=== PATIENT | male | born 1980 | race Two or more races ===

== ENCOUNTER 2023-02-18 15:37 | Emergency (ER) | payer SELFPAY ==
[~2023-02-18] VITALS: Ht 180.3 cm; Wt 91.0 kg
[2023-02-18 15:50] VITALS: TEMP 98.7; O2SAT 98
[2023-02-18] MEDS ORDERED: IBUPROFEN 600MG TABLET PO ONE (19:00)
[2023-02-18] MEDS ORDERED: METHOCARBAMOL 500MG TABLET PO ONE (19:00)
[2023-02-18 19:34] VITALS: BP 173/110; PULSE 100; RESP 18
[2023-02-18] MEDS ORDERED: TOPUD MT (20:00)
[2023-02-18] MEDS ORDERED: METH-653 MT (20:00)
== END 2023-02-18 20:12 | disposition home or self-care (01) ==
LOC: ER 15:37
DX: M54.50 Low back pain, unspecified (principal); V49.9XXA Car occupant (driver) (passenger) injured in unspecified traffic accident, initial encounter; Y93.89 Activity, other specified; Y92.89 Other specified places as the place of occurrence of the external cause; Y99.8 Other external cause status
CPT/HCPCS: 72131; 99284